=== PATIENT | female | born 1980 | race Caucasian/White ===

== ENCOUNTER 2021-02-17 12:29 | Emergency (ER) | payer OTHER ==
[~2021-02-17] VITALS: Ht 167.6 cm; Wt 90.7 kg
[2021-02-17] MEDS ORDERED: KETO10TA2 PO (15:30)
[2021-02-17] MEDS ORDERED: ORPHENADRINE C100 MG PO (15:30)
[2021-02-17] MEDS ORDERED: ADVIL200 MG (15:32)
== END 2021-02-17 15:52 | disposition home or self-care (01) ==
LOC: ER 12:29
DX: S33.5XXA Sprain of ligaments of lumbar spine, initial encounter (principal); M54.2 Cervicalgia; M25.551 Pain in right hip; M25.552 Pain in left hip; M62.838 Other muscle spasm; W01.0XXA Fall on same level from slipping, tripping and stumbling without subsequent striking against object, initial encounter; Y93.01 Activity, walking, marching and hiking; Y92.59 Other trade areas as the place of occurrence of the external cause; Y99.8 Other external cause status